=== PATIENT | female | born 1985 | race Two or more races ===

== ENCOUNTER 2023-03-05 13:02 | Emergency (ER) | payer OTHER | END 2023-03-05 13:27 | disposition left against medical advice (07) | LOC: ER 13:09 | DX: F19.10 Other psychoactive substance abuse, uncomplicated (principal) ==

== ENCOUNTER 2023-04-29 20:50 | Emergency (ER) | payer OTHER ==
[~2023-04-29] VITALS: Ht 160 cm; Wt 77.1 kg
[2023-04-29] MEDS: IV NS 0.9% 1,000 ML BAG IV ONE (21:31)
[2023-04-29 21:37] VITALS: TEMP 98.4
[2023-04-29] MEDS: LORAZEPAM 1 MG TABLET PO ONE (22:22)
[2023-04-30 00:01] VITALS: BP 104/68; O2SAT 96
== END 2023-04-30 00:03 | disposition home or self-care (01) ==
LOC: ER 20:51
DX: F10.20 Alcohol dependence, uncomplicated (principal); R00.0 Tachycardia, unspecified; Y90.9 Presence of alcohol in blood, level not specified
CPT/HCPCS: 99283; 96360; 93005; J7030